=== PATIENT | male | born 1960 | race Two or more races ===

== ENCOUNTER 2021-08-22 16:41 | Inpatient (IN) | payer OTHER ==
[~2021-08-22] VITALS: Ht 172.7 cm; Wt 84.4 kg
[2021-08-22] MEDS ORDERED: PIPERACILLIN /TAZOBACTAM 3.375 G in IV D5W 50 ML IV ONE (17:00)
[2021-08-22] MEDS ORDERED: VANCOMYCIN 1 GM in IV D5W 250 ML IV ONE (17:00)
--- NOTE | 2021-08-22 17:01 | NUR ---
BIBRA C/O Cough, congestion, fever, and shortness of breath x 4 days He has been sick for 8 days now. PLACED ON BED, AAOX3, DYSPNEIC RR-21, SATURATING AT 96% WITH O2 4LIT. WARM TO TOUCH.
[2021-08-22 17:17] LABS: BASOPHILS % (AUTO) 0.2 % (0.0-2.0); EOSINOPHILS % (AUTO) 0.1 % (0.0-6.0); HEMATOCRIT 37 % (39-51); HEMOGLOBIN 11.7 g/dL (13.5-17.5); LYMPHOCYTES # (AUTO) 0.9 K/uL (0.8-4.8); LYMPHOCYTES % (AUTO) 11.3 % (20.0-44.0); MEAN CORPUSCULAR HGB CONC 32 g/dl (31.0-36.0); MEAN CORPUSCULAR VOLUME 72 fL (80-96); MONOCYTES # (AUTO) 0.2 K/uL (0.1-1.30); MONOCYTES % (AUTO) 2.4 % (2.0-12.0); NEUTROPHILS # (AUTO) 7.2 K/uL (1.8-8.9); PLATELET COUNT (AUTO) 308 K/uL (150-450); RED BLOOD CELL COUNT(AUTO) 5.19 MIL/uL (4.5-6.0); WHITE BLOOD COUNT (AUTO) 8.4 K/uL (4.3-11.0)
--- NOTE | 2021-08-22 17:20 | NUR ---
RUBBER STAMP DIE INSPECTOR AT BED SIDE
[2021-08-22] MEDS ORDERED: IV NS 0.9% 1,000 ML BAG IV ONE (17:30)
[2021-08-22 17:31] LABS: CALCIUM, SERUM 7.9 mg/dL (8.5-10.1); CARBON DIOXIDE 26 mmol/L (21-32); CHLORIDE 101 mmol/L (98-107); GLUCOSE 92 mg/dL (74-106); POTASSIUM 3.3 mmol/L (3.5-5.1); SODIUM SERUM 138 mmol/L (136-145); UREA NITROGEN, BLOOD 8 mg/dL (7-18)
[2021-08-22 17:45] LABS: ALANINE AMINOTRANSFERASE 24 U/L (12-78); ALBUMIN 2.1 g/dL (3.4-5.0); ALKALINE PHOSPHATASE 45 U/L (46-116); ASPARTATE AMINOTRANSFERASE 36 U/L (15-37); BILIRUBIN,DIRECT 0.1 mg/dL (0.0-0.2); BILIRUBIN,TOTAL 0.3 mg/dL (0.2-1.0); TOTAL PROTEIN, SERUM 6.9 g/dL (6.4-8.2)
--- NOTE | 2021-08-22 17:50 | NUR ---
X-RAY TECH AT BED SIDE
[2021-08-22] MEDS ORDERED: APIX5TAB PO (18:00)
[2021-08-22] MEDS ORDERED: CHOL200010 PO (18:00)
[2021-08-22] MEDS ORDERED: TRAM50TA2 PO (18:00)
[2021-08-22] MEDS ORDERED: POLY17PO29 PO (18:00)
[2021-08-22] MEDS ORDERED: SUCR1TAB PO (18:00)
[2021-08-22] MEDS ORDERED: CELE-85 PO (18:00)
[2021-08-22] MEDS ORDERED: ATOR40TA PO (18:00)
[2021-08-22] MEDS ORDERED: APRE30TA2 PO (18:00)
[2021-08-22] MEDS ORDERED: FERR324T PO (18:00)
[2021-08-22] MEDS ORDERED: OMEP20CA15 PO (18:00)
[2021-08-22] MEDS ORDERED: METO50TA16 PO (18:00)
[2021-08-22 18:28] LABS: BAND % (MANUAL) 3 % (0.0-5.0); LYMPHOCYTES % (MANUAL) 9 % (16-48); MONOCYTES % (MANUAL) 4 % (0-11.0); NEUTROPHILS % (MANUAL) 84 (42-76)
--- NOTE | 2021-08-22 18:30 | NUR ---
LAB CALLED, PATIENT COVID (+) POSITIVE.
[2021-08-22] MEDS ORDERED: DEXAMETHASONE SOD PHOSPHATE 6 MG in IV D5W 50 ML IV ONE (19:00)
[2021-08-22] MEDS ORDERED: ACETAMINOPHEN ES 500 MG TABLET PO ONE (19:00)
[2021-08-22] MEDS ORDERED: ACETAMINOPHEN 650 MG/SUPP.RECT RC PRN (20:30)
[2021-08-22] MEDS ORDERED: ONDANSETRON HCL/PF 4 MG/2 ML VIAL IVP PRN (20:30)
[2021-08-22] MEDS ORDERED: ALBUTEROL SULFATE 8 GM HFA.AER.AD IH PRN (20:30)
[2021-08-22] MEDS ORDERED: ACETAMINOPHEN 325 MG TABLET PO PRN (20:30)
[2021-08-22] MEDS ORDERED: DEXAMETHASONE SOD PHOSPHATE 10 MG/ML VIAL ONE (20:39)
[2021-08-22] MEDS ORDERED: ACETAMINOPHEN ES 500 MG TABLET ONE (20:39)
[2021-08-22] MEDS ORDERED: DEXAMETHASONE SOD PHOSPHATE 10 MG/ML VIAL IV ONE (21:00)
--- NOTE | 2021-08-22 21:15 | NUR ---
URINE SAMPLE SENT TO LAB
[2021-08-22] MEDS ORDERED: IV NS 0.9% 1,000 ML IV ONE (21:30)
[2021-08-22 21:56] LABS: BILIRUBIN,URINE NEGATIVE (NEGATIVE); COLOR,URINE YELLOW (YELLOW); LEUKOCYTE ESTERASE ,URINE TRACE (NEGATIVE); NITRITE, URINE NEGATIVE (NEGATIVE); PH,URINE 8.5 (5.0-8.0); PROTEIN,URINE TRACE mg/dl (NEGATIVE); UGLUCOSE NEGATIVE (NEGATIVE); UROBILINOGEN,URINE 0.2 EU/dL (0.2)
[2021-08-22 22:12] LABS: BACTERIA,URINE None seen /HPF (None Seen); SPERM,URINE Few /HPF (None Seen); SQUAMOUS EPITHELIAL CELL,UR 0-2 /HPF (None Seen); WBC,URINE 0-2 /HPF (0-3)
[2021-08-22] MEDS ORDERED: IV NS 0.9% 250 ML IV ONE (22:37)
[2021-08-22] MEDS ORDERED: IOHEXOL-350 100 ML VIAL IV ONE (22:37)
[2021-08-22] MEDS ORDERED: CT SWABBABLE VALVE TRANS SET 1 EA INFUS.SET MC ONE (22:37)
--- NOTE | 2021-08-22 22:55 | NUR ---
REPORT GIVEN TO CITLALI KIMBROUGH [id number] FOR GERMÁN
--- NOTE | 2021-08-22 23:04 | NUR ---
BED GIVEN 105
[2021-08-22 23:30] VITALS: BP 105/72
[2021-08-22] MEDS ORDERED: ENOXAPARIN SODIUM 100 MG/ML DISP.SYRIN SQ ONE (23:45)
[2021-08-23] MEDS ORDERED: PIPERACILLIN /TAZOBACTAM 3.375 G VIAL IV ONE ×2 (00:08→05:57)
[2021-08-23] MEDS: ZOSYN IVPB 3.375 G in IV D5W 50ml IV SCH ×2 (00:29→06:06)
[2021-08-23] MEDS: ATORVASTATIN 40 MG TABLET PO SCH ×2 (01:25→21:07)
[2021-08-23 04:00] VITALS: BP 108/72
[2021-08-23 04:02] LABS: BASOPHILS % (AUTO) 0.3 % (0.0-2.0); HEMATOCRIT 37 % (39-51); HEMOGLOBIN 11.5 g/dL (13.5-17.5); LYMPHOCYTES # (AUTO) 0.6 K/uL (0.8-4.8); LYMPHOCYTES % (AUTO) 11.6 % (20.0-44.0); MEAN CORPUSCULAR HGB CONC 31 g/dl (31.0-36.0); MEAN CORPUSCULAR VOLUME 72 fL (80-96); MONOCYTES # (AUTO) 0.1 K/uL (0.1-1.30); MONOCYTES % (AUTO) 2.1 % (2.0-12.0); NEUTROPHILS # (AUTO) 4.4 K/uL (1.8-8.9); PLATELET COUNT (AUTO) 291 K/uL (150-450); WHITE BLOOD COUNT (AUTO) 5.1 K/uL (4.3-11.0)
[2021-08-23 04:15] LABS: ALBUMIN 2.1 g/dL (3.4-5.0); BILIRUBIN,TOTAL 0.4 mg/dL (0.2-1.0); CALCIUM, SERUM 7.9 mg/dL (8.5-10.1); CREATININE 0.9 mg/dL (0.6-1.3); POTASSIUM 3.7 mmol/L (3.5-5.1); TOTAL PROTEIN, SERUM 6.9 g/dL (6.4-8.2)
[2021-08-23] MEDS ORDERED: PANTOPRAZOLE 40 MG TABLET.DR PO SCH (07:30)
[2021-08-23] MEDS ORDERED: SUCRALFATE 1 G TABLET PO SCH (07:30)
--- NOTE | 2021-08-23 08:00 | NUR ---
cable television technician note PATIENT IS IN THE BED, ALERT ORIENTED. ON 4L NASAL CANNULA, SATURATION 97% AT THIS TIME. PATIENT ON TELE MONITOR, SR, HR 96. HAS LEFT WRIST AND LEFT AC, HEP LOCK INTACT, AND FLUSHED WELL. ON IV FLUIDS ORDERED. BED IN LOWEST AND LOCKED POSITION. CALL LIGHT IS WITHIN REACH. WILL MONITOR.
[2021-08-23] MEDS ORDERED: OMEPRAZOLE 20 MG CAPSULE.DR PO SCH (09:00)
[2021-08-23] MEDS: POLYETHYLENE GLYCOL 3350 17 GM POWD.PACK PO SCH (09:00)
[2021-08-23] MEDS: CELECOXIB 100 MG CAPSULE PO SCH ×2 (09:00→16:10)
[2021-08-23] MEDS: CHOLECALCIFEROL 1,000 UNIT TABLET (VIT D3) PO SCH (09:00)
[2021-08-23] MEDS ORDERED: Medication Not On Formulary EA (Apremilast (Otezla) 30 MG) PO SCH (09:00)
[2021-08-23] MEDS ORDERED: DEXAMETHASONE SOD PHOSPHATE 4 MG/ML VIAL IV SCH (09:00)
--- NOTE | 2021-08-23 09:00 | NUR ---
ART INSTRUCTOR NOTES PATIENT IN BED, RT IN BEDSIDE, ABG DONE ORDERED. INCREASED OXYGEN TO 6L PER ABG RESULT. WILL REPORT TO DOCTOR.
[2021-08-23] MEDS: FERROUS SULFATE (325 MG) 325 MG/TAB TABLET PO SCH ×2 (09:01→16:10)
[2021-08-23] MEDS: METOPROLOL TARTRATE 50 MG TABLET PO SCH ×2 (09:01→16:25)
[2021-08-23] MEDS: ENOXAPARIN SODIUM 100 MG/ML DISP.SYRIN SQ SCH ×2 (09:02→21:08)
[2021-08-23 09:04] LABS: ABG OXYGEN SATURATION 90.9 % (92.0-98.5); ABG PCO2 32.8 mmHg (35.0-45.0); ABG PH 7.466 (7.350-7.450); ABG PO2 60.8 mmHg (75.0-100.0); AaDO2 150.6 mmHg; COHb 0.1 % (0.5-1.5); MetHb 0.3 % (0.0-1.5); O2Hb 90.5 % (94.0-97.0); SITE, ABG Right Radial; VENT MODE, BG 4L NC
[2021-08-23] MEDS: PANTOPRAZOLE 40 MG TABLET.DR PO SCH (09:04)
[2021-08-23] MEDS: SUCRALFATE 1 G TABLET PO SCH ×2 (09:06→16:10)
[2021-08-23 10:06] VITALS: BP 111/71
--- NOTE | 2021-08-23 10:26 | NUR ---
PREPARATION SUPERVISOR FREEZING NOTES DOCTOR NEW PACKAGE DRIER, NOTIFIED ABG RESULT AND PATIENT IS ON 6L CANNULA. WILL FOLLOW UP. NO NEW ORDERS AT THIS TIME.
[2021-08-23 12:00] VITALS: BP 114/88
[2021-08-23] MEDS ORDERED: PIPERACILLIN /TAZOBACTAM 3.375 G in IV D5W 50 ML IV SCH (12:00)
[2021-08-23] MEDS ORDERED: REMDESIVIR (CHARGED) 200 MG in IV NS 0.9% 250 ML IV ONE (13:00)
[2021-08-23] MEDS ORDERED: REMDESIVIR (CHARGED) 200 MG, *LOADING DOSE 1 EA in IV NS 0.9% 210 ML IV ONE (13:00)
--- NOTE | 2021-08-23 14:00 | NUR ---
KIER HAND NOTE ROUNDS MADE ALL NEEDS ATTENDED, ASSISTED TO BR , KEEP CLEAN DRY
[2021-08-23] MEDS: PIPERACILLIN /TAZOBACTAM 3.375 G in IV D5W 100 ML IV SCH ×2 (14:56→21:07)
[2021-08-23 16:00] VITALS: BP 114/88
[2021-08-23] MEDS: TRAMADOL HCL 50 MG TABLET PO PRN (16:06)
--- NOTE | 2021-08-23 16:10 | NUR ---
telephone operator note c\o pain both legs tramadol 50 mg po given ,will f\u
[2021-08-23] MEDS: APREMILAST 30 MG PO SCH (16:25)
--- NOTE | 2021-08-23 18:58 | NUR ---
CELLO TEACHER NOTE PATIENT IN BED, ALERT ORIENTED ON 6L NC ,NO SOB NOTED AT THIS TIME ,ABLE TO EAT DINNER, ATE 25% OF DIET,ALL NEEDS ATTENDED , CALL LIGHT WITHIN REACH , PLAN OF CARE DISCUSSED WITH PATIENT
--- NOTE | 2021-08-23 19:47 | NUR ---
RN OPENING NOTES: RECEIVED PT IN BED, SLEEPING IN BED BUT EASILY AROUSABLE, AWAKE, ALERT/ORIENTED X3-4 AND VERBALLY RESPONSIVE. KINYARWANDA SPEAKING. ON O2 AT 6L/MIN VIA N/C AND PT TOLERATED WELL. IV ACCESS ON LT WRIST #20G, LAC#18 G INTACT AND PATENT. NO S/S OF INFILTRATIONS. NO C/O PAIN OR DISCOMFORT. NO ACUTE DISTRESS. ALL SAFETY MEASURES IN PLACE. BED IN LOWEST POSITION AND LOCKED. SIDE RAILS UP X2, PLACE CALL LIGHT WITH IN REACH. WILL CONTINUE TO MONITOR.
[2021-08-23 20:00] VITALS: BP 116/70
[2021-08-23] MEDS: HYDROCODONE/APAP 10/325MG TABLET PO PRN (22:14)
--- NOTE | 2021-08-23 22:18 | NUR ---
RN NOTES: PT C/O PAIN ON BOTH LEG, NORCO 10/325 MG TAB GIVEN AND PT TOLERATED WELL. WILL CONTINUE TO MONITOR
--- NOTE | 2021-08-23 23:10 | NUR ---
RN NOTES: PT C/O DIARRHEA. NOTIFIED DR. GUEVARA. NO NEW ORDER AT THIS MOMENT. WILL CONTINUE TO MONITOR
[2021-08-24] VITALS: BP 98/71
[2021-08-24 04:00] VITALS: BP 108/65
[2021-08-24] MEDS: PIPERACILLIN /TAZOBACTAM 3.375 G in IV D5W 100 ML IV SCH ×3 (05:12→21:34)
--- NOTE | 2021-08-24 06:35 | NUR ---
RN CLOSING NOTES: PT IN BED, AWAKE, ALERT/ORIENTED X3-4 AND VERBALLY RESPONSIVE. NEPALI SPEAKING. ON O2 AT 6L/MIN VIA N/C AND PT TOLERATED WELL. O2 SAT 94%. IV ACCESS ON LT/RT WRIST #20G, LAC#18 G INTACT AND PATENT. NO S/S OF INFILTRATIONS. NO C/O PAIN OR DISCOMFORT. NO ACUTE DISTRESS. ALL DUE MEDS GIVEN ORDERED. ALL SAFETY MEASURES IN PLACE. BED IN LOWEST POSITION AND LOCKED. SIDE RAILS UP X2, PLACE CALL LIGHT WITH IN REACH. WILL ENDORSE TO MORNING SHIFT NURSE.
[2021-08-24 06:37] LABS: BASOPHILS % (AUTO) 0.2 % (0.0-2.0); HEMATOCRIT 35 % (39-51); LYMPHOCYTES # (AUTO) 0.8 K/uL (0.8-4.8); LYMPHOCYTES % (AUTO) 19.9 % (20.0-44.0); MEAN CORPUSCULAR HGB CONC 32 g/dl (31.0-36.0); MEAN CORPUSCULAR VOLUME 71 fL (80-96); MONOCYTES # (AUTO) 0.4 K/uL (0.1-1.30); MONOCYTES % (AUTO) 9.8 % (2.0-12.0); NEUTROPHILS % (AUTO) 70.1 % (43.0-81.0); PLATELET COUNT (AUTO) 320 K/uL (150-450); RED BLOOD CELL COUNT(AUTO) 4.86 MIL/uL (4.5-6.0); WHITE BLOOD COUNT (AUTO) 4.2 K/uL (4.3-11.0)
[2021-08-24 06:51] LABS: ALBUMIN 1.8 g/dL (3.4-5.0); BILIRUBIN,DIRECT 0.1 mg/dL (0.0-0.2); BILIRUBIN,TOTAL 0.2 mg/dL (0.2-1.0); CALCIUM, SERUM 7.9 mg/dL (8.5-10.1); CREATININE 0.8 mg/dL (0.6-1.3); POTASSIUM 3.2 mmol/L (3.5-5.1); TOTAL PROTEIN, SERUM 6.1 g/dL (6.4-8.2)
[2021-08-24] MEDS: PANTOPRAZOLE 40 MG TABLET.DR PO SCH (07:34)
[2021-08-24] MEDS: SUCRALFATE 1 G TABLET PO SCH ×2 (07:34→16:19)
--- NOTE | 2021-08-24 07:45 | NUR ---
RN OPENING NOTES RECEIVED PT IN BED A/O X3-4, YI SPEAKING. PT ON 6L VIA NC SATING AT 96%. IV ACCESS NOTED AT L WRIST, R WRIST 20G, LAC 18G. NO FLUIDS RUNNING. ALL SAFETY MEASURES IN PLACE. WILL CONT. TO MONITOR THROUGHOUT SHIFT.
[2021-08-24 08:00] VITALS: BP 118/69
[2021-08-24] MEDS: DEXAMETHASONE SOD PHOSPHATE 10 MG/ML VIAL IV SCH (08:47)
[2021-08-24] MEDS: METOPROLOL TARTRATE 50 MG TABLET PO SCH ×2 (08:49→16:19)
[2021-08-24] MEDS: POLYETHYLENE GLYCOL 3350 17 GM POWD.PACK PO SCH (08:49)
[2021-08-24] MEDS: FERROUS SULFATE (325 MG) 325 MG/TAB TABLET PO SCH ×2 (08:50→16:19)
[2021-08-24] MEDS: CELECOXIB 100 MG CAPSULE PO SCH ×2 (08:50→16:19)
[2021-08-24] MEDS: APREMILAST 30 MG PO SCH ×2 (08:50→16:20)
[2021-08-24] MEDS: CHOLECALCIFEROL 1,000 UNIT TABLET (VIT D3) PO SCH (08:50)
[2021-08-24] MEDS: ENOXAPARIN SODIUM 40 MG/0.4 ML DISP.SYRIN SQ SCH ×2 (08:52→21:33)
[2021-08-24] MEDS ORDERED: POTASSIUM CHLORIDE 20 MEQ TAB.PRT.SR PO SCH (10:00)
[2021-08-24] MEDS ORDERED: REMDESIVIR (CHARGED) 100 MG in IV NS 0.9% 230 ML IV SCH (10:30)
[2021-08-24 12:00] VITALS: BP 109/79
[2021-08-24] MEDS ORDERED: REMDESIVIR (CHARGED) 100 MG in IV NS 0.9% 120 ML IV SCH (13:00)
[2021-08-24] MEDS: REMDESIVIR (CHARGED) 100 MG in IV NS 0.9% 100 ML IV SCH (13:03)
[2021-08-24 16:00] VITALS: BP 106/72
--- NOTE | 2021-08-24 18:43 | NUR ---
RN CLOSING NOTES PT IN BED A/O X3-4, VATICAN CITIZEN SPEAKING. PT ON 6L VIA NC SATING AT 96%. IV ACCESS NOTED AT L WRIST, R WRIST 20G, LAC 18G. NO FLUIDS RUNNING. ALL SAFETY MEASURES IN PLACE. WILL ENDORSE TO ELECTRIC METER INSTALLER RN FOR GERMÁN.
--- NOTE | 2021-08-24 19:31 | NUR ---
RN OPENING NOTES: RECEIVED PT IN BED, AWAKE, ALERT/ORIENTED X3-4 AND VERBALLY RESPONSIVE. MONGOLIAN SPEAKING. ON O2 AT 6L/MIN VIA N/C AND PT TOLERATED WELL. IV ACCESS ON LT/RT WRIST #20G, LAC#18 G INTACT AND PATENT. NO S/S OF INFILTRATIONS. NO C/O PAIN OR DISCOMFORT. NO ACUTE DISTRESS. ALL SAFETY MEASURES IN PLACE. BED IN LOWEST POSITION AND LOCKED. SIDE RAILS UP X2, PLACE CALL LIGHT WITH IN REACH. WILL CONTINUE TO MONITOR.
[2021-08-24 20:00] VITALS: BP 105/74
--- NOTE | 2021-08-24 20:05 | NUR ---
RN NOTES: CALLED BLOOD BANK ABOUT BLOOD. MENTIONED NOT READY YET. THEY WILL CALL WHEN IT'S READY. Addendum: 08/24/21 at 2008 by ZAID BECKFORD RN WRONG CHART
[2021-08-24] MEDS: ATORVASTATIN 40 MG TABLET PO SCH (21:33)
[2021-08-25] VITALS: BP 102/68
[2021-08-25 04:00] VITALS: BP 108/65
[2021-08-25] MEDS: PIPERACILLIN /TAZOBACTAM 3.375 G in IV D5W 100 ML IV SCH ×3 (05:34→22:24)
--- NOTE | 2021-08-25 06:35 | NUR ---
RN CLOSING NOTES: PT IN BED, AWAKE, ALERT/ORIENTED X3-4 AND VERBALLY RESPONSIVE. FRISIAN SPEAKING. ON O2 AT 6L/MIN VIA N/C AND PT TOLERATED WELL. O2 SAT 98%. IV ACCESS ON LT HAND#20G /RT WRIST #20G, LAC#18 G INTACT AND PATENT. NO S/S OF INFILTRATIONS. NO C/O PAIN OR DISCOMFORT. NO ACUTE DISTRESS. ALL DUE MEDS GIVEN ORDERED. ALL SAFETY MEASURES IN PLACE. BED IN LOWEST POSITION AND LOCKED. SIDE RAILS UP X2, PLACE CALL LIGHT WITH IN REACH. WILL ENDORSE TO MORNING SHIFT NURSE.
[2021-08-25 07:13] LABS: BASOPHILS % (AUTO) 0.9 % (0.0-2.0); HEMATOCRIT 35 % (39-51); HEMOGLOBIN 11.4 g/dL (13.5-17.5); LYMPHOCYTES # (AUTO) 0.9 K/uL (0.8-4.8); LYMPHOCYTES % (AUTO) 18.2 % (20.0-44.0); MEAN CORPUSCULAR HGB CONC 32 g/dl (31.0-36.0); MEAN CORPUSCULAR VOLUME 71 fL (80-96); MONOCYTES # (AUTO) 0.6 K/uL (0.1-1.30); MONOCYTES % (AUTO) 11.8 % (2.0-12.0); NEUTROPHILS # (AUTO) 3.4 K/uL (1.8-8.9); NEUTROPHILS % (AUTO) 69.1 % (43.0-81.0); PLATELET COUNT (AUTO) 367 K/uL (150-450); RED BLOOD CELL COUNT(AUTO) 4.93 MIL/uL (4.5-6.0); WHITE BLOOD COUNT (AUTO) 4.9 K/uL (4.3-11.0)
--- NOTE | 2021-08-25 07:30 | NUR ---
RECEIVED PT IN BED, AWAKE. GIBRALTARIAN SPEAKING. ON O2 AT 6L/MIN VIA N/C AND PT TOLERATED WELL. IV ACCESS ON LT/RT WRIST #20G, LAC#18 G INTACT AND PATENT. NO S/S OF INFILTRATIONS. NO C/O PAIN OR DISCOMFORT. NO ACUTE DISTRESS. ALL SAFETY MEASURES IN PLACE. BED IN LOWEST POSITION AND LOCKED. SIDE RAILS UP X2, PLACE CALL LIGHT WITH IN REACH. WILL CONTINUE TO MONITOR.
[2021-08-25 07:36] LABS: ALBUMIN 1.9 g/dL (3.4-5.0); BILIRUBIN,DIRECT 0.1 mg/dL (0.0-0.2); BILIRUBIN,TOTAL 0.2 mg/dL (0.2-1.0); CALCIUM, SERUM 7.8 mg/dL (8.5-10.1); CREATININE 0.8 mg/dL (0.6-1.3); POTASSIUM 3.5 mmol/L (3.5-5.1); TOTAL PROTEIN, SERUM 6.1 g/dL (6.4-8.2)
[2021-08-25] MEDS: SUCRALFATE 1 G TABLET PO SCH ×2 (07:41→16:08)
[2021-08-25] MEDS: PANTOPRAZOLE 40 MG TABLET.DR PO SCH (07:41)
[2021-08-25 08:00] VITALS: BP 120/77
[2021-08-25] MEDS: DEXAMETHASONE SOD PHOSPHATE 10 MG/ML VIAL IV SCH (08:50)
[2021-08-25] MEDS: ENOXAPARIN SODIUM 40 MG/0.4 ML DISP.SYRIN SQ SCH ×2 (08:51→22:25)
[2021-08-25] MEDS: CELECOXIB 100 MG CAPSULE PO SCH ×2 (08:52→16:08)
[2021-08-25] MEDS: FERROUS SULFATE (325 MG) 325 MG/TAB TABLET PO SCH ×2 (08:52→16:08)
[2021-08-25] MEDS: POLYETHYLENE GLYCOL 3350 17 GM POWD.PACK PO SCH (08:53)
[2021-08-25] MEDS: METOPROLOL TARTRATE 50 MG TABLET PO SCH ×2 (08:53→16:08)
[2021-08-25] MEDS: CHOLECALCIFEROL 1,000 UNIT TABLET (VIT D3) PO SCH (08:53)
[2021-08-25] MEDS: APREMILAST 30 MG PO SCH ×2 (08:55→16:07)
[2021-08-25 12:00] VITALS: BP 108/74
[2021-08-25] MEDS: REMDESIVIR (CHARGED) 100 MG in IV NS 0.9% 100 ML IV SCH (13:27)
--- NOTE | 2021-08-25 14:07 | NUR ---
IV SITE TO LAC#18 G APPEARS SWOLLEN WITH COOLNESS PRESENT. IV INFUSION STOPPED. PROCEDURE FOR IV DISCONTINUANCE EXPLAINED. PT VERBALIZED UNDERSTANDING. IV DISCONTINUED, CATHETER INTACT. EXTREMITY ELEVATED. PT TOLERATED PROCEDURE WELL. CHARGE NURSE INFORMED.
[2021-08-25 16:00] VITALS: BP 105/74
--- NOTE | 2021-08-25 18:51 | NUR ---
PT IN BED, AWAKE, ALERT/ORIENTED X3-4 AND VERBALLY RESPONSIVE. POLISH SPEAKING. ON O2 AT 6L/MIN VIA N/C AND PT TOLERATED WELL. O2 SAT 98%. IV ACCESS ON LT HAND#20G /RT WRIST #20G, INTACT AND PATENT. NO S/S OF INFILTRATIONS. NO C/O PAIN OR DISCOMFORT. NO ACUTE DISTRESS. ALL DUE MEDS GIVEN ORDERED. ALL SAFETY MEASURES IN PLACE. BED IN LOWEST POSITION AND LOCKED. SIDE RAILS UP X2, PLACE CALL LIGHT WITH IN REACH. WILL ENDORSE TO GATE PERSON NURSE FOR CONTINUITY OF CARE.
--- NOTE | 2021-08-25 19:49 | NUR ---
HVAC MECHANIC OPENING NOTES RECEIVED PT IN BED, AWAKE, ALERT/ORIENTED X3-4 AND VERBALLY RESPONSIVE. CROATIAN SPEAKING. ON O2 AT 6L/MIN VIA N/C AND PT TOLERATED WELL. IV ACCESS ON RT WRIST #20G, LAC#18 G INTACT AND PATENT. NO S/S OF INFILTRATIONS. NO C/O PAIN OR DISCOMFORT. NO ACUTE DISTRESS. ALL SAFETY MEASURES IN PLACE. BED IN LOWEST POSITION AND LOCKED. SIDE RAILS UP X2, CALL LIGHT WITHIN REACH. WILL CONTINUE TO MONITOR.
[2021-08-25 20:00] VITALS: BP 116/81
[2021-08-25] MEDS: ATORVASTATIN 40 MG TABLET PO SCH (22:24)
[2021-08-26] VITALS: BP 103/77
[2021-08-26 04:00] VITALS: BP 100/71
[2021-08-26] MEDS: PIPERACILLIN /TAZOBACTAM 3.375 G in IV D5W 100 ML IV SCH ×3 (05:23→21:22)
[2021-08-26 06:48] LABS: BASOPHILS % (AUTO) 0.5 % (0.0-2.0); EOSINOPHILS % (AUTO) 0.6 % (0.0-6.0); HEMATOCRIT 36 % (39-51); HEMOGLOBIN 11.4 g/dL (13.5-17.5); LYMPHOCYTES # (AUTO) 1.1 K/uL (0.8-4.8); LYMPHOCYTES % (AUTO) 23.1 % (20.0-44.0); MEAN CORPUSCULAR HGB CONC 31 g/dl (31.0-36.0); MEAN CORPUSCULAR VOLUME 72 fL (80-96); MONOCYTES # (AUTO) 0.5 K/uL (0.1-1.30); MONOCYTES % (AUTO) 11.2 % (2.0-12.0); NEUTROPHILS # (AUTO) 3.2 K/uL (1.8-8.9); NEUTROPHILS % (AUTO) 64.6 % (43.0-81.0); PLATELET COUNT (AUTO) 399 K/uL (150-450); RED BLOOD CELL COUNT(AUTO) 5.09 MIL/uL (4.5-6.0); WHITE BLOOD COUNT (AUTO) 4.9 K/uL (4.3-11.0)
--- NOTE | 2021-08-26 06:51 | NUR ---
COLLECTIONS REPRESENTATIVE CLOSING NOTES NO SIGNIFICANT CHANGES THROUGHOUT THE SHIFT, PT REMAINS IN BED, AWAKE, ALERT/ORIENTED X3. [place]STA RICAN SPEAKING. ON O2 AT 6L/MIN VIA N/C AND PT TOLERATED WELL. IV ACCESS ON RT WRIST #20G, LAC#18 G INTACT AND PATENT. NO S/S OF INFILTRATIONS. NO C/O PAIN OR DISCOMFORT. NO ACUTE DISTRESS. ALL SAFETY MEASURES IN PLACE. BED IN LOWEST POSITION AND LOCKED. SIDE RAILS UP X2, CALL LIGHT WITHIN REACH. WILL ENDORSE TO AM SHIFT NURSE.
--- NOTE | 2021-08-26 07:30 | NUR ---
RECEIVED PT IN BED, AWAKE, ALERT/ORIENTED X3-4 AND VERBALLY RESPONSIVE. UKRAINIAN SPEAKING. ON O2 AT 6L/MIN VIA N/C AND PT TOLERATED WELL. IV ACCESS ON RT WRIST #20G, LAC#18 G INTACT AND PATENT. NO S/S OF INFILTRATIONS. NO C/O PAIN OR DISCOMFORT. NO ACUTE DISTRESS. ALL SAFETY MEASURES IN PLACE. BED IN LOWEST POSITION AND LOCKED. SIDE RAILS UP X2, CALL LIGHT WITHIN REACH. WILL CONTINUE TO MONITOR.
[2021-08-26 07:33] LABS: ALBUMIN 1.9 g/dL (3.4-5.0); BILIRUBIN,DIRECT 0.1 mg/dL (0.0-0.2); BILIRUBIN,TOTAL 0.3 mg/dL (0.2-1.0); CALCIUM, SERUM 7.8 mg/dL (8.5-10.1); CREATININE 0.8 mg/dL (0.6-1.3); POTASSIUM 3.1 mmol/L (3.5-5.1); TOTAL PROTEIN, SERUM 5.9 g/dL (6.4-8.2)
[2021-08-26] MEDS: PANTOPRAZOLE 40 MG TABLET.DR PO SCH (07:42)
[2021-08-26] MEDS: SUCRALFATE 1 G TABLET PO SCH ×2 (07:42→18:26)
[2021-08-26 08:00] VITALS: BP 98/69
[2021-08-26] MEDS: ENOXAPARIN SODIUM 40 MG/0.4 ML DISP.SYRIN SQ SCH ×2 (09:08→20:21)
[2021-08-26] MEDS: DEXAMETHASONE SOD PHOSPHATE 10 MG/ML VIAL IV SCH (09:09)
[2021-08-26] MEDS: METOPROLOL TARTRATE 50 MG TABLET PO SCH ×2 (09:10→18:25)
[2021-08-26] MEDS: APREMILAST 30 MG PO SCH ×2 (09:11→18:25)
[2021-08-26] MEDS: CHOLECALCIFEROL 1,000 UNIT TABLET (VIT D3) PO SCH (09:11)
[2021-08-26] MEDS: POLYETHYLENE GLYCOL 3350 17 GM POWD.PACK PO SCH (09:11)
[2021-08-26] MEDS: CELECOXIB 100 MG CAPSULE PO SCH ×2 (09:12→18:26)
[2021-08-26] MEDS: FERROUS SULFATE (325 MG) 325 MG/TAB TABLET PO SCH ×2 (09:14→18:26)
[2021-08-26] MEDS ORDERED: POTASSIUM CHLORIDE 20 MEQ TAB.PRT.SR PO SCH (10:00)
[2021-08-26] MEDS: HYDROCODONE/APAP 10/325MG TABLET PO PRN ×2 (10:46→20:20)
[2021-08-26 12:00] VITALS: BP 99/71
[2021-08-26] MEDS: REMDESIVIR (CHARGED) 100 MG in IV NS 0.9% 100 ML IV SCH (13:17)
--- NOTE | 2021-08-26 15:30 | NUR ---
REVIEWED DISCHARGE INSTRUCTIONS WITH PT. PT VERBALIZED UNDERSTANDING. PT DISCHARGED VIA WHEELCHAIR WITH BELONGINGS, PRESCRIPTION AND INSTRUCTIONS. BUS PASS PROVIDED. IV PREVIOUSLY DISCONTINUED. PT LEFT HOSPITAL TO RETIREMENT. JEN/ FIONA. Addendum: 08/26/21 at 1545 by JOVANI DEAL RN PLEASE DISREGARD. NOTE FOR A DIFFERENT PT.
[2021-08-26 16:00] VITALS: BP 99/71
--- NOTE | 2021-08-26 19:41 | NUR ---
PT REFUSED ENEMA. EXPLAINED PROCEDURE AND BENEFIT. PT STILL REFUSED. CHARGE NURSE INFORMED.
--- NOTE | 2021-08-26 19:56 | NUR ---
NO SIGNIFICANT CHANGES THROUGHOUT THE SHIFT, PT REMAINS IN BED, AWAKE, ALERT/ORIENTED X3. NIUEAN SPEAKING. ON O2 AT 6L/MIN VIA N/C AND PT TOLERATED WELL. IV ACCESS ON RT WRIST #20G, LAC#18 G INTACT AND PATENT. NO S/S OF INFILTRATIONS. NO C/O PAIN OR DISCOMFORT. NO ACUTE DISTRESS. ALL SAFETY MEASURES IN PLACE. BED IN LOWEST POSITION AND LOCKED. SIDE RAILS UP X2, CALL LIGHT WITHIN REACH. WILL ENDORSE TO PM SHIFT NURSE.
[2021-08-26 20:00] VITALS: BP 113/71
--- NOTE | 2021-08-26 20:00 | NUR ---
cable television installer notes received pts in bed awake alert and responsive able to make needs known. v/s stable afebrile no sob no distress noted on o2 at 6l via nc [id number] all due meds given as ordered no ase noted . with r wrist g#20 left ac G#18 intact and patent all needs attended to call light within reach kept pts clean dry and comfortable . will continue to monitor pts.
[2021-08-26] MEDS: ATORVASTATIN 40 MG TABLET PO SCH (21:19)
--- NOTE | 2021-08-26 21:38 | NUR ---
telegraph messenger notes pts requesting for sleeping pills md angelito phipps with order restoril 15mg via po qhs prn for sleeping order noted and carried out.
[2021-08-26] MEDS: TEMAZEPAM 15 MG CAPSULE PO PRN (23:35)
[2021-08-27] VITALS: BP 100/65
[2021-08-27 04:00] VITALS: BP_SYST 100; BP_SYST 94; BP_DIAS 65; BP_DIAS 69
[2021-08-27] MEDS: BENZONATATE 100 MG CAPSULE PO PRN ×2 (05:27→21:26)
[2021-08-27] MEDS: PIPERACILLIN /TAZOBACTAM 3.375 G in IV D5W 100 ML IV SCH ×3 (05:27→21:26)
[2021-08-27] MEDS: HYDROCODONE/APAP 10/325MG TABLET PO PRN ×4 (05:29→21:26)
[2021-08-27 06:38] LABS: BASOPHILS % (AUTO) 0.2 % (0.0-2.0); EOSINOPHILS % (AUTO) 1.6 % (0.0-6.0); HEMATOCRIT 36 % (39-51); HEMOGLOBIN 11.7 g/dL (13.5-17.5); LYMPHOCYTES # (AUTO) 1.4 K/uL (0.8-4.8); MEAN CORPUSCULAR HGB CONC 32 g/dl (31.0-36.0); MEAN CORPUSCULAR VOLUME 71 fL (80-96); MONOCYTES # (AUTO) 0.6 K/uL (0.1-1.30); MONOCYTES % (AUTO) 11.6 % (2.0-12.0); NEUTROPHILS # (AUTO) 3.4 K/uL (1.8-8.9); NEUTROPHILS % (AUTO) 61.6 % (43.0-81.0); PLATELET COUNT (AUTO) 442 K/uL (150-450); RED BLOOD CELL COUNT(AUTO) 5.11 MIL/uL (4.5-6.0); WHITE BLOOD COUNT (AUTO) 5.6 K/uL (4.3-11.0)
--- NOTE | 2021-08-27 06:51 | NUR ---
ms rn notes Pts comfortable in bed no ilan noted all needs attended too call light within reach v/s stable afebrile no sob no distress noted .pts remains on 6liters of o2 via nc. will endorse to rn day shift for continuity of care.
--- NOTE | 2021-08-27 07:27 | NUR ---
RN OPENING NOTE RECIEVED PATIENT FROM NIGHTSHIFT RN. PATIENT CURRENTLY ASLEEP IN BED. ON SUPPLEMENTAL OXYGEN VIA NASAL CANNULA AT 6 LITERS PER MINUTE BREATHING EVENLY AND UNLABORED. ON EXTERNAL TURPENTINER READING NORMAL SINUS RHYTHM. URINAL NOTED AT BEDSIDE. SKIN INTACT. IV ACCESS NOTED ON LEFT ANTECUBITAL 18 GAUGE, AND RIGHT HAND 20 GAUGE. BED IN LOWEST POSITION, CALL LIGHT WITHIN REACH, SIDE RAILS UP. WILL CONTINEU PLAN OF CARE AND ANTICIPATE NEEDS.
[2021-08-27 07:39] LABS: ALBUMIN 2.1 g/dL (3.4-5.0); BILIRUBIN,DIRECT 0.1 mg/dL (0.0-0.2); BILIRUBIN,TOTAL 0.3 mg/dL (0.2-1.0); CALCIUM, SERUM 8.2 mg/dL (8.5-10.1); CREATININE 0.8 mg/dL (0.6-1.3); POTASSIUM 3.7 mmol/L (3.5-5.1); TOTAL PROTEIN, SERUM 6.2 g/dL (6.4-8.2)
[2021-08-27 08:00] VITALS: BP 102/65
[2021-08-27] MEDS: DEXAMETHASONE SOD PHOSPHATE 10 MG/ML VIAL IV SCH (08:40)
[2021-08-27] MEDS: FERROUS SULFATE (325 MG) 325 MG/TAB TABLET PO SCH ×2 (08:40→16:50)
[2021-08-27] MEDS: POLYETHYLENE GLYCOL 3350 17 GM POWD.PACK PO SCH (08:40)
[2021-08-27] MEDS: PANTOPRAZOLE 40 MG TABLET.DR PO SCH (08:40)
[2021-08-27] MEDS: CELECOXIB 100 MG CAPSULE PO SCH ×2 (08:41→16:50)
[2021-08-27] MEDS: METOPROLOL TARTRATE 50 MG TABLET PO SCH ×2 (08:41→16:51)
[2021-08-27] MEDS: ENOXAPARIN SODIUM 40 MG/0.4 ML DISP.SYRIN SQ SCH ×2 (08:41→21:25)
[2021-08-27] MEDS: CHOLECALCIFEROL 1,000 UNIT TABLET (VIT D3) PO SCH (08:41)
[2021-08-27] MEDS: SUCRALFATE 1 G TABLET PO SCH ×2 (08:43→16:51)
[2021-08-27] MEDS: APREMILAST 30 MG PO SCH ×2 (08:44→16:50)
[2021-08-27 12:00] VITALS: BP 93/58
[2021-08-27] MEDS: REMDESIVIR (CHARGED) 100 MG in IV NS 0.9% 100 ML IV SCH (12:00)
[2021-08-27 16:00] VITALS: BP 102/67
--- NOTE | 2021-08-27 18:28 | NUR ---
RN CLOSING NOTE PATIENT CURRENTLY RESTING IN BED. ON SUPPLEMENTAL OXYGEN VIA NASAL CANNULA AT 6 LITERS PER MINUTE BREATHING EVENLY AND UNLABORED. ON EXTERNAL TRUCK GREASER READING NORMAL SINUS RHYTHM. URINAL NOTED AT BEDSIDE. SKIN INTACT. IV ACCESS NOTED ON RIGHT HAND 20 GAUGE RUNNING NORMAL SALINE TKO. BED IN LOWEST POSITION, CALL LIGHT WITHIN REACH, SIDE RAILS UP. ALL DUE MEDICATIONS GIVEN, KEPT CLEAN AND DRY THROUGHOUT SHIFT. WILL ENDORSE TO NIGHTSHIFT RN FOR CONTINUATION OF CARE.
[2021-08-27 20:00] VITALS: BP 100/68
--- NOTE | 2021-08-27 20:00 | NUR ---
telecommunications switch technician notes received pts in bed awake alert and responsive able to make needs known. v/s stable afebrile no sob no distress noted on o2 at 6l via nc [id number] all due meds given as ordered no ase noted . with r wrist g#20 left ac G#18 intact and patent all needs attended to call light within reach kept pts clean dry and comfortable . will continue to monitor pts.
[2021-08-27] MEDS: ATORVASTATIN 40 MG TABLET PO SCH (21:26)
[2021-08-27] MEDS: TEMAZEPAM 15 MG CAPSULE PO PRN (21:26)
[2021-08-28 02:59] VITALS: BP 99/61
[2021-08-28] MEDS: HYDROCODONE/APAP 10/325MG TABLET PO PRN ×3 (03:55→23:30)
[2021-08-28 04:00] VITALS: BP 111/71
[2021-08-28] MEDS: PIPERACILLIN /TAZOBACTAM 3.375 G in IV D5W 100 ML IV SCH ×3 (05:10→21:09)
[2021-08-28 07:01] LABS: BASOPHILS % (AUTO) 0.1 % (0.0-2.0); EOSINOPHILS % (AUTO) 1.8 % (0.0-6.0); HEMATOCRIT 38 % (39-51); LYMPHOCYTES # (AUTO) 1.3 K/uL (0.8-4.8); LYMPHOCYTES % (AUTO) 23.7 % (20.0-44.0); MEAN CORPUSCULAR HGB CONC 32 g/dl (31.0-36.0); MEAN CORPUSCULAR VOLUME 73 fL (80-96); MONOCYTES # (AUTO) 0.6 K/uL (0.1-1.30); MONOCYTES % (AUTO) 11.1 % (2.0-12.0); NEUTROPHILS # (AUTO) 3.6 K/uL (1.8-8.9); NEUTROPHILS % (AUTO) 63.3 % (43.0-81.0); PLATELET COUNT (AUTO) 485 K/uL (150-450); RED BLOOD CELL COUNT(AUTO) 5.26 MIL/uL (4.5-6.0); WHITE BLOOD COUNT (AUTO) 5.6 K/uL (4.3-11.0)
--- NOTE | 2021-08-28 07:20 | NUR ---
RN OPENING NOTES RECEIVED PATIENT IN BED, AWAKE, A/O X4, VERBALLY RESPONSIVE, NO SIGNS OF ACUTE RESPIRATORY DISTRESS NOTED. ON O2 @ 6LPM VIA N/C, SPO2 @97%, NO SOB NOTED, BREATHING EVEN AND UNLABORED. WITH IV ACCESS ON RIGHT WRIST #20G, INTACT AND PATENT, SALINE LOCKED. ON TELE MONITOR WITH CURRENT READING SHOWING SINUS RHYTHM, HR @ 88. SAFETY MEASURE IN PLACE, BED IN LOWEST AND LOCKED POSITION, SIDE RAILS UP, CALL LIGHT PLACED WITHIN EASY REACH. WILL CONTINUE TO MONITOR PATIENT.
[2021-08-28 08:00] VITALS: BP 102/71
[2021-08-28 08:13] LABS: ALBUMIN 2.2 g/dL (3.4-5.0); BILIRUBIN,TOTAL 0.3 mg/dL (0.2-1.0); CALCIUM, SERUM 8.5 mg/dL (8.5-10.1); CREATININE 0.8 mg/dL (0.6-1.3); MAGNESIUM 1.9 mg/dL (1.8-2.4); PHOSPHORUS 3.1 mg/dL (2.5-4.9); POTASSIUM 3.5 mmol/L (3.5-5.1); TOTAL PROTEIN, SERUM 6.4 g/dL (6.4-8.2)
[2021-08-28] MEDS: PANTOPRAZOLE 40 MG TABLET.DR PO SCH (08:33)
[2021-08-28] MEDS: SUCRALFATE 1 G TABLET PO SCH ×2 (08:33→15:55)
[2021-08-28] MEDS: DEXAMETHASONE SOD PHOSPHATE 10 MG/ML VIAL IV SCH (08:33)
[2021-08-28] MEDS: CHOLECALCIFEROL 1,000 UNIT TABLET (VIT D3) PO SCH (08:33)
[2021-08-28] MEDS: APREMILAST 30 MG PO SCH ×2 (08:34→16:36)
[2021-08-28] MEDS: CELECOXIB 100 MG CAPSULE PO SCH ×2 (08:34→16:36)
[2021-08-28] MEDS: FERROUS SULFATE (325 MG) 325 MG/TAB TABLET PO SCH ×2 (08:34→16:36)
[2021-08-28] MEDS: ENOXAPARIN SODIUM 40 MG/0.4 ML DISP.SYRIN SQ SCH ×2 (08:36→21:08)
[2021-08-28] MEDS: POLYETHYLENE GLYCOL 3350 17 GM POWD.PACK PO SCH (08:38)
[2021-08-28] MEDS: METOPROLOL TARTRATE 50 MG TABLET PO SCH ×2 (08:38→16:36)
[2021-08-28 11:30] LABS: BAND % (MANUAL) 2 % (0.0-5.0); EOSINOPHILS % (MANUAL) 1 % (0-4); LYMPHOCYTES % (MANUAL) 35 % (16-48); MONOCYTES % (MANUAL) 13 % (0-11.0); NEUTROPHILS % (MANUAL) 49 (42-76)
[2021-08-28 12:00] VITALS: BP 95/66
[2021-08-28] MEDS: TRAMADOL HCL 50 MG TABLET PO PRN (13:00)
[2021-08-28] MEDS ORDERED: HYDROCODONE/APAP 5/325MG TABLET PO PRN (14:00)
[2021-08-28] MEDS: BENZONATATE 100 MG CAPSULE PO PRN (15:55)
[2021-08-28 16:00] VITALS: BP 101/69
--- NOTE | 2021-08-28 18:49 | NUR ---
RN CLOSING NOTES PATIENT IN BED, AWAKE, A/O X4, VERBALLY RESPONSIVE, NO SIGNS OF ACUTE RESPIRATORY DISTRESS NOTED. ON O2 @ 3LPM VIA N/C, SPO2 @97%, NO SOB NOTED, BREATHING EVEN AND UNLABORED. WITH IV ACCESS ON RIGHT WRIST #20G, INTACT AND PATENT, SALINE LOCKED. ON TELE MONITOR WITH CURRENT READING SHOWING SINUS TACH, HR @123. ISOLATION PRECAUTIONS OBSERVED. SAFETY MEASURE IN PLACE, BED IN LOWEST AND LOCKED POSITION, SIDE RAILS UP, CALL LIGHT PLACED WITHIN EASY REACH. WILL ENDORSE TO NEXT SHIFT FOR CONTINUITY OF CARE.
--- NOTE | 2021-08-28 19:30 | NUR ---
RN OPENING NOTE RECEIVED PATIENT IN BED, AWAKE, A/O X4, VERBALLY RESPONSIVE. ON O2 @ 3LPM VIA N/C, SPO2 @98%, NO SOB NOTED, BREATHING EVEN AND UNLABORED. NO SIGNS OF ACUTE RESPIRATORY DISTRESS NOTED AT THIS TIME. WITH IV ACCESS ON RIGHT WRIST #20G, INTACT AND PATENT, SALINE LOCK. ON TELE MONITOR WITH CURRENT READING SHOWING SINUS TACH, HR @ 104. ALL SAFETY MEASURES IN PLACE, BED IN LOWEST AND LOCKED POSITION, SIDE RAILS UP, CALL LIGHT PLACED WITHIN EASY REACH. WILL CONTINUE TO MONITOR PATIENT.
[2021-08-28 20:00] VITALS: BP 107/70
--- NOTE | 2021-08-28 20:22 | NUR ---
LATE ENTRY ISMA/RESIDENCE HALL DIRECTOR PT WAS RECIEVED FROM ER. PT WAS PLACED ON TELEY BOX. ALL NEW ORDERS WERE NOTED AND CARRIED OUT.
[2021-08-28] MEDS: ATORVASTATIN 40 MG TABLET PO SCH (21:08)
[2021-08-28] MEDS: TEMAZEPAM 15 MG CAPSULE PO PRN (21:08)
--- NOTE | 2021-08-28 21:15 | NUR ---
RN NOTE PT ASKED FOR SLEEPING PILL. GAVE RESTORIL ORDERED. WILL MONITOR PT CLOSELY.
--- NOTE | 2021-08-28 22:30 | NUR ---
RN NOTE DUE MEDS GIVEN.
--- NOTE | 2021-08-28 23:15 | NUR ---
RN NOTE PT ASKED FOR PAIN MED. GAVE NORCO ORDERED. WILL REASSESS PT IN AN HOUR.
[2021-08-29] VITALS: BP 106/69
[2021-08-29 04:00] VITALS: BP 117/73
[2021-08-29] MEDS: PIPERACILLIN /TAZOBACTAM 3.375 G in IV D5W 100 ML IV SCH ×2 (05:00→13:41)
--- NOTE | 2021-08-29 05:57 | NUR ---
HIV/AIDS CARE NURSE NOTE PT REMAINED STABLE, NO SIGNIFICANT CHANGES THROUGHOUT THE NIGHT. ALL DUE MEDS GIVEN. NEEDS ATTENDED TO. ALL SAFETY MEASURES IN PLACE. CALL LIGHT WITHIN REACH. WILL ENDORSE TO AM SHIFT NURSE FOR GERMÁN.
--- NOTE | 2021-08-29 07:25 | NUR ---
RN OPENING NOTE RECIEVED PATIENT REPORT FROM [facility] NURSE. PATIENT CURRENTLY ASLEEP. ON THREE LITERS OF OXYGEN NASAL CANULA, BREATHIBNG Addendum: 08/29/21 at 0728 by EVA CARTER RN SAVED NOTE PREMATURELY OPENING NOTE IS FOLLOWS RN OPENING NOTE RECEIVED PAT[facility]. PATIENT CURRENTLY ASLEEP. ON THREE LITERS OF OXYGEN NASAL CANULA, BREATHING EVENLY AND UNLABORED. EXTERNAL HIGH REACH OPERATOR ATTACHED, READING NORMAL SINUS RHYTHM. URINAL NOTED AT BEDSIDE, WALKER NOTED AT BEDSIDE. SKIN IS INTACT. IV ACCESS NOTED ON RIGHT WRIST 20 GAUGE. SAFETY MEASURES IN PLACE, BED ALARM ON, SIDE RAILS UP, CALL LIGHT WITHIN REACH. WILL CONTINUE PLAN OF CARE AND ANTICIPATE NEEDS.
[2021-08-29] MEDS: PANTOPRAZOLE 40 MG TABLET.DR PO SCH (07:30)
[2021-08-29] MEDS: SUCRALFATE 1 G TABLET PO SCH (07:30)
[2021-08-29 08:00] VITALS: BP 96/70
[2021-08-29] MEDS: METOPROLOL TARTRATE 50 MG TABLET PO SCH (09:00)
[2021-08-29] MEDS: DEXAMETHASONE SOD PHOSPHATE 10 MG/ML VIAL IV SCH (09:31)
[2021-08-29] MEDS: FERROUS SULFATE (325 MG) 325 MG/TAB TABLET PO SCH (09:32)
[2021-08-29] MEDS: CELECOXIB 100 MG CAPSULE PO SCH (09:32)
[2021-08-29] MEDS: APREMILAST 30 MG PO SCH (09:33)
[2021-08-29] MEDS: POLYETHYLENE GLYCOL 3350 17 GM POWD.PACK PO SCH (09:33)
[2021-08-29] MEDS: CHOLECALCIFEROL 1,000 UNIT TABLET (VIT D3) PO SCH (09:33)
[2021-08-29] MEDS: ENOXAPARIN SODIUM 40 MG/0.4 ML DISP.SYRIN SQ SCH (09:34)
[2021-08-29 12:00] VITALS: BP 96/64
[2021-08-29] MEDS: HYDROCODONE/APAP 10/325MG TABLET PO PRN (15:34)
--- NOTE | 2021-08-29 17:00 | NUR ---
RN CLOSING NOTE PATIENT HAS BEEN DISCHARGED HOME. TELEMETRY BOX REMOVED. IV ACCESS DISCONTINUED NO BLEEDING, ALL BELONGINGS ACCOUNTED FOR. PATIENT SIGNED DISCHARGE INSTRUCTIONS AND BELONGINGS LIST. PATIENT WAS WHEELED TO THE FRONT LOBBY WHERE HE WAS RECEIVED BY HIS ADULT CHILDREN. PROVIDED EDUCATION ON OXYGEN TANK AND ADDITIONAL DISCHARGE INSTRUCTIONS. PATIENT LEFT HOSPITAL PROPERTY IN A PRIVATE CAR IN STABLE CONDITION.
== END 2021-08-29 17:03 | disposition home or self-care (01) | DRG 871 ==
LOC: ER 16:44 → TELE1 23:08
PROVIDERS: ADMIT Nurse Practitioner Acute Care; ATTEND Nurse Practitioner Acute Care
PROC: XW033E5 Introduction of Remdesivir Anti-infective into Peripheral Vein, Percutaneous Approach, New Technology Group 5 (ICD-10-PCS; principal; 2021-08-23)
DX: A41.89 Other specified sepsis (principal); J12.82 Pneumonia due to coronavirus disease 2019; U07.1 COVID-19; J96.01 Acute respiratory failure with hypoxia; J15.9 Unspecified bacterial pneumonia; E44.0 Moderate protein-calorie malnutrition; E88.09 Other disorders of plasma-protein metabolism, not elsewhere classified; E87.6 Hypokalemia; I10 Essential (primary) hypertension; Z86.73 Personal history of transient ischemic attack (TIA), and cerebral infarction without residual deficits; Z91.041 Radiographic dye allergy status; Z79.01 Long term (current) use of anticoagulants; Z79.899 Other long term (current) drug therapy; E78.5 Hyperlipidemia, unspecified; E83.51 Hypocalcemia; I73.9 Peripheral vascular disease, unspecified; K21.9 Gastro-esophageal reflux disease without esophagitis; M19.90 Unspecified osteoarthritis, unspecified site; Z82.49 Family history of ischemic heart disease and other diseases of the circulatory system; Z83.3 Family history of diabetes mellitus
CPT/HCPCS: 36415; 36600; 71045-TC; 80048-TC; 80053-TC; 80076-TC; 81001; 82803-TC; 83605-TC; 83735-TC; 83880; 84100-TC; 84484-TC; 85025-TC; 85378-TC; 85610-TC; 85730-TC; 86140-TC; 87040-TC; 87081-TC; 87086-TC; 94799-TC; A4216; C9803; G0378; J1100; J1650; J2543; J3370; J7030; J7050; J7060; Q9967